=== PATIENT | male | born 1955 | race African-American/Black ===

== ENCOUNTER 2019-04-14 08:26 | Emergency (ER) | payer BC ==
[2019-04-14] MEDS ORDERED: Tetracaine 0.5% OPHTH SOLN/PF 4 ML BOT ONE (08:47)
== END 2019-04-14 09:24 | disposition home or self-care (01) ==
LOC: MADERS 08:26
DX: S05.02XA Injury of conjunctiva and corneal abrasion without foreign body, left eye, initial encounter (principal); X58.XXXA Exposure to other specified factors, initial encounter
CPT/HCPCS: 99282

== ENCOUNTER 2022-03-19 05:59 | Emergency (ER) | payer MEDICARE, BC, OTHER ==
[2022-03-19 06:21] LABS: Bilirubin Negative (Negative); Blood, Urine Negative (Negative); Clarity Clear (Clear); Glucose, Urine (Dipstick) Negative (Negative); Ketone, Urine Negative (Negative); Leukocyte Negative (Negative); Nitrite Negative (Negative); Protein, Urine (Dipstick) Negative (Neg-Trace); Urobilinogen > or = 8.0 mg/dL (Less than 2)
[2022-03-19] MEDS ORDERED: Dexamethasone 10 MG/ML VIAL ONE (07:52)
== END 2022-03-19 08:40 | disposition home or self-care (01) ==
LOC: MADERS 05:59
DX: M51.36 Other intervertebral disc degeneration, lumbar region (principal); M48.061 Spinal stenosis, lumbar region without neurogenic claudication
CPT/HCPCS: 72131; 81003; 96374; J1100

== ENCOUNTER 2022-05-01 07:44 | Emergency (ER) | payer MEDICARE, BC, OTHER ==
[2022-05-01] MEDS ORDERED: Ondansetron PF 4 MG/2 ML Vial ONE (08:40)
[2022-05-01] MEDS ORDERED: Dicyclomine 20 MG/2 ML VIAL ONE ×2 (08:40→08:41)
[2022-05-01] MEDS ORDERED: Lactated Ringer's 1,000 ML ONE (08:40)
[2022-05-01 08:57] LABS: ALT (SGPT) 12 U/L (8-55); AST (SGOT) 15 U/L (5-34); Albumin 4.5 g/dL (3.4-4.8); Alkaline Phosphatase 69 U/L (40-110); Anion Gap 14 mmol/L (10-20); BUN (Urea Nitrogen) 14 mg/dL (8.4-25.7); Bilirubin, Total 1.8 mg/dL (0.2-1.2); Calc. Creatinine Clearance 0 mL/min (70-130); Calcium 9.1 mg/dL (7.8-10.44); Carbon Dioxide 25 mmol/L (23-31); Chloride 108 mmol/L (98-107); Estimated GFR 82; Globulin 2.2 g/dL (2.4-3.5); Glucose 144 mg/dL (80-115); Lipase 11 U/L (8-78); Magnesium 2.3 mg/dL (1.6-2.6); Potassium 4.7 mmol/L (3.5-5.1); Protein, Total 6.7 g/dL (5.8-8.1); Sodium 142 mmol/L (136-145)
[2022-05-01 09:09] LABS: Hemoglobin 14.3 g/dL (14.0-18.0); Mean Corpuscular HGB CONC 29.8 g/dL (32.0-36.0); Mean Corpuscular Hemoglobin 26.7 pg (27.0-31.0); Mean Corpuscular Volume 89.8 fL (78.0-98.0); Mean Platelet Volume 8.7 fL (7.4-10.4); Platelet Count 165 thou/uL (130-400); RBC Distribution Width 14.6 % (11.5-14.5); Red Blood Cell (RBC) Count 5.35 mill/uL (4.70-6.10); White Blood Cell (WBC) Count 6.6 thou/uL (4.8-10.8)
[2022-05-01] MEDS ORDERED: Iopamidol 370 76% 100 ML VIAL ONE (09:40)
[2022-05-01 09:53] LABS: Bilirubin Negative (Negative); Blood, Urine Negative (Negative); Clarity Clear (Clear); Glucose, Urine (Dipstick) Negative (Negative); Ketone, Urine Negative (Negative); Leukocyte Negative (Negative); Nitrite Negative (Negative); Protein, Urine (Dipstick) Negative (Neg-Trace); pH, Urine 6.5 (5.0-9.0)
[2022-05-01 10:01] LABS: Hypochromia SLIGHT = 6-15 cells (100X) (0-5/hpf); Lymphocytes 23 % (21-51); MDiff Complete? YES; Monocytes 4 % (0-10); Neutrophil 73 % (42-75); Platelet Morphology Comment Appears Adequate
[2022-05-01 12:14] LABS: Lactic Acid 1.8 mmol/L (0.5-2.2)
== END 2022-05-01 12:30 | disposition home or self-care (01) ==
LOC: MADERS 07:44
DX: K63.89 Other specified diseases of intestine (principal); K94.03 Colostomy malfunction; R74.02 Elevation of levels of lactic acid dehydrogenase [LDH]; E80.7 Disorder of bilirubin metabolism, unspecified; Z85.038 Personal history of other malignant neoplasm of large intestine
CPT/HCPCS: 74177; 80053; 81003; 83605; 83690; 83735; 85025; 94760; 96361; 96372; 96374; J2405; J7120; Q9967

== ENCOUNTER 2023-05-14 21:03 | Emergency (ER) | payer MEDICARE, BC, OTHER ==
[2023-05-14] MEDS ORDERED: Fluorescein Opthalmic Strip ONE (21:17)
[2023-05-14] MEDS ORDERED: Tetracaine 0.5% PF 4 ML BOT ONE (21:17)
[2023-05-14] MEDS ORDERED: Erythromycin Base 0.5% Ophth Oint 3.5 gm Tube ONE (21:42)
== END 2023-05-14 21:51 | disposition home or self-care (01) ==
LOC: MADERS 21:03
DX: H10.9 Unspecified conjunctivitis (principal); C18.9 Malignant neoplasm of colon, unspecified
CPT/HCPCS: 99283

== ENCOUNTER 2024-09-28 23:53 | Emergency (ER) | payer MEDICARE, BC, OTHER ==
[2024-09-29] MEDS ORDERED: Ibuprofen 200 MG TAB ONE (00:17)
== END 2024-09-29 00:25 | disposition home or self-care (01) ==
LOC: MADERS 23:53
DX: J06.9 Acute upper respiratory infection, unspecified (principal); I10 Essential (primary) hypertension; I48.91 Unspecified atrial fibrillation; Z79.899 Other long term (current) drug therapy
CPT/HCPCS: 99282